=== PATIENT | male | born 1945 | race Caucasian/White ===

== ENCOUNTER → 2016-11-29 | Outpatient (CLI) | payer OTHER ==
[2015-06-28 12:14] VITALS: BP 137/85
== END ==
LOC: RAD 16:08
PROVIDERS: ATTEND Internal Medicine Cardiovascular Disease
DX: I20.8 Other forms of angina pectoris (principal)
CPT/HCPCS: 93306

== ENCOUNTER → 2016-12-03 | Outpatient (CLI) | payer OTHER ==
[2015-06-28 12:14] VITALS: BP 137/85
[~2016-12-03] MED LIST: ANCEF VIAL 1 GM ONE; LR 1000 ML IV 1,000 ML IV ONE; NS 50 ML IV + SPIKE MINIBAG* 50 ML IV ONE
== END ==
LOC: RAD 08:40
PROVIDERS: ATTEND Internal Medicine Cardiovascular Disease
DX: I20.8 Other forms of angina pectoris (principal)
CPT/HCPCS: 78452; 93017; A4222; A9502; J0690; J7120